=== PATIENT | male | born 2005 | race Caucasian/White ===

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

== ENCOUNTER 2023-12-08 09:46 | Emergency (ER) | payer MEDICAID, OTHER ==
[2023-12-08 10:15] VITALS: TEMP 97.7; O2SAT 100
[2023-12-08 11:01] VITALS: BP 146/97; PULSE 84; RESP 17
--- NOTE | 2023-12-08 11:03 | XRAY ---
Indication: Trauma/laceration with saw. Comparison: None 3 view left 3rd finger demonstrates small distal soft tissue laceration anterior laterally. No other bony, articular, or soft tissue abnormalities.
--- NOTE | 2023-12-08 11:06 | ERPHSYRPT ---
- History of Present Illness Time Seen by Provider: 12/08/23 09:54 Source: patient Exam Limitations: no limitations Patient Subjective Stated Complaint: Left middle finger Triage Nursing Assessment: 18 yr old male pt arrives to ED via POV with girl friend. Pt cut his left middle digit with a saw at work. Pt has bandage with pressure on it at arrival. Pt is unsure if he his up to date on his tetanus shot. Pt is alert, oriented and not in distress. Physician History: 18 years old male right-handed dominant presented in the ER after he had an accidental laceration left third digit pulp while working with a saw machine prior to arrival. There was bleeding initially, applied pressure and it improved. Denies any distal numbness. Patient is up-to-date with tetanus. No injury anywhere else. 2 cm curved with jagged edges laceration left third digit pulp with no obvious tendon laceration. Distal neurovascular intact. Full range of motion at distal interphalangeal joint cannot be assessed. X-rays are negative for fracture reviewed by me, official report is pending. 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 He rather opted to go for glue and Steri-Strip. Discussed with patient about risk of delayed healing, poor cosmetic repair but he still wants to go for it. Repair is done. Patient is placed in aluminum premade splint. Recommended outpatient orthopedics follow- up. Since it was not a clean wound and although thoroughly cleaned, will place on antibiotics. Allergies/Adverse Reactions: adhesive Allergy (Mild, Verified 12/08/23 10:11) rash Home Medications: Sertraline HCl 100 mg [Zoloft 100 MG] 50 mg PO QAM 04/30/16 [History] Lisinopril/Hydrochlorothiazide [Lisinopril-Hctz 10-12.5 mg Tab] 50 mg PO DAILY 11/08/19 [History] Hx Tetanus, Diphtheria Vaccination/Date Given: No Hx Influenza Vaccination/Date Given: No Hx Pneumococcal Vaccination/Date Given: No Travel Risk - International Travel Have you traveled outside of the country in past 3 weeks: No - Emerging Infectious Disease Are you exhibiting symptoms associated with any current EIDs: No - Review of Systems Constitutional: No Symptoms Ears, Nose, & Throat: No Symptoms Respiratory: No Symptoms Cardiac: No Symptoms Abdominal/Gastrointestinal: No Symptoms Musculoskeletal: Injury Skin: Skin Lesions Neurological: No Symptoms Endocrine: No Symptoms Hematologic/Lymphatic: No Symptoms - Past Medical History Pertinent Past Medical History: Yes Neurological History: Other, Migraines ENT History: No Pertinent History Cardiac History: Hypertension Respiratory History: Asthma Endocrine Medical History: Other Musculoskeletal History: No Pertinent History, Other GI Medical History: No Pertinent History History: No Pertinent History Psycho-Social History: Anxiety Male Reproductive Disorders: No Pertinent History Other Medical History: BORDERLINE DMII, - Past Surgical History Past Surgical History: No Neuro Surgical History: No Pertinent History Cardiac: No Pertinent History Respiratory: No Pertinent History Gastrointestinal: No Pertinent History Genitourinary: No Pertinent History Musculoskeletal: No Pertinent History Male Surgical History: No Pertinent History - Social History Smoking Status: Current every day smoker How long have you smoked: 3 years Exposure to second hand smoke: No Drug Use: marijuana Patient Lives Alone: No - Social Determinants of Health Will the patient participate in the screening: Yes Do you worry about a steady place to live?: No Do you have any problems with any of the following?: No known problems In the past 12 months,have you had to go without utilities?: No Transportation Issues: No Has anyone in your support network made you feel unsafe?: No Have you or anyone in your house had to go without enough: No - Nursing Vital Signs Nursing Vital Signs: Initial Vital Signs Temperature 97.7 F 12/08/23 09:47 Pulse Rate 94 H 12/08/23 09:47 Respiratory Rate 18 12/08/23 09:47 Blood Pressure 158/96 12/08/23 09:47 O2 Sat by Pulse Oximetry 100 12/08/23 09:47 Pain Scale Pain Intensity 7 - Physical Exam General Appearance: no apparent distress, alert Eye Exam: PERRL/EOMI Ears, Nose, Throat Exam: normal ENT inspection Neck Exam: normal inspection, full range of motion Respiratory Exam: normal breath sounds, lungs clear Cardiovascular Exam: regular rate/rhythm, normal heart sounds Gastrointestinal/Abdomen Exam: soft, normal bowel sounds, No tenderness Extremity Exam: lacerations, tenderness Neurologic Exam: alert, oriented x 3 Skin Exam: normal color SpO2 Interpretation: normal SpO2: 100 O2 Delivery: Room Air Procedures - Laceration/Wound Repair Left Finger Time of Procedure: 11:07 Wound Location: Left, hand Wound Length (cm): 2 Wound's Depth, Shape: into muscle, irregular Wound Explored: contaminated Irrigated: Yes Hibiclens Prep: Yes Wound Repaired With: Steri-strips, Dermabond Layer Closure?: No Sterile Dressing Applied?: Yes Splint Applied?: Yes Ordered Tests: Active Orders 24 hr Category Date Time Status FINGER(S) Stat Exams 12/08/23 10:41 Taken - Progress Progress: improved Progress Note: 12/08/23 11:07 18 years old male right-handed dominant presented in the ER after he had an accidental laceration left third digit pulp while working with a saw machine prior to arrival. There was bleeding initially, applied pressure and it improved. Denies any distal numbness. Patient is up-to-date with tetanus. No injury anywhere else. 2 cm curved with jagged edges laceration left third digit pulp with no obvious tendon laceration. Distal neurovascular intact. Full range of motion at distal interphalangeal joint cannot be assessed. X-rays are negative for fracture reviewed by me, official report is pending. 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 He rather opted to go for glue and Steri-Strip. Discussed with patient about risk of delayed healing, poor cosmetic repair but he still wants to go for it. Repair is done. Patient is placed in aluminum premade splint. Recommended outpatient orthopedics follow- up. Since it was not a clean wound and although thoroughly cleaned, will place on antibiotics. Discussed signs symptoms of worsening needing return to ER which he seems understanding. Counseled pt/family regarding: diagnosis, need for follow-up, rad results Medical Desision Making - Diagnostic Testing Diagnostic test were ordered, analyzed, and reviewed by me: Yes Radiological Interpretation: Interpreted by me, Reviewed by me - Risk of complications The pt has a mod risk of morbidity or mortality based on: Need for prescription drug management, Need for minor surgical intervention in patient with know risk factors - Departure Departure Disposition: Home Clinical Impression: Finger laceration Condition: Stable Critical Care Time: No Referrals: TAY CRAVEN MD [Primary Care Provider] - Follow up with PCP 1 day KEVIN DEGROOT MD [ACTIVE STAFF] - Follow up other (Call for appointment for eval) Instructions: Laceration Repair With Glue (DC) Additional Instructions: Follow-up with primary care and orthopedics for reevaluation. Take Tylenol/ibuprofen as needed. Intermittent ice application. Return to ER for excruciating pain, swelling, discharge, fever chills etc. Prescriptions: Ibuprofen 600 mg PO Q6HPRN PRN 10 Days #20 tablet PRN Reason: Pain Cephalexin Mh 500 mg [Keflex 500 mg] 500 mg PO TID #21 cap
== END 2023-12-08 11:40 | disposition home or self-care (01) ==
LOC: ED 09:46
DX: S61.213A Laceration without foreign body of left middle finger without damage to nail, initial encounter (principal); W31.2XXA Contact with powered woodworking and forming machines, initial encounter; Y99.0 Civilian activity done for income or pay; I10 Essential (primary) hypertension; Z79.899 Other long term (current) drug therapy; Z72.0 Tobacco use
CPT/HCPCS: 12001; 73140; 99283